=== PATIENT | male | born 1965 | race Caucasian/White ===

== ENCOUNTER 2017-03-12 11:19 | Emergency (ER) | payer BC, OTHER ==
[2017-03-12 11:32] VITALS: BP 132/97; PULSE 67; TEMP 98.3; BMI 38.0
--- NOTE | 2017-03-12 12:54 | PDOC ---
History of Present Illness - General Chief Complaint: Bleeding from Anus Stated Complaint: RECTAL BLEED Time Seen by Provider: 03/12/17 12:00 - History of Present Illness Initial Comments: 03/12/17 12:44 52M w/ significant alcohol hx, recent used of NSAIDs, PUD, hemmorrhoids, and colonoscopy 2 years ago showing polyps, presenting w/ 5 days of BRBPR. Pt reports seeing blood in his stool and leaking from anus s/p BM 5 days ago which increased two days ago. He reports alternating constipation and diarrhea, colicky lower abdominal pain worst before BMs and improved after BMs. He took dulcolex last night which decreased hematochezia this am. He denies melena, nausea, emesis, fevers, chills, weight loss, and anal itching or pain, and he has a normal appetite. He reports 2 weeks of neck pain, so has taken about 4 pills of either aleve or advil each day since. He has 2 drinks of alcohol a day for past 25 years. He had a colonoscopy 2 years ago which showed polyps, and he was told to return for another colonoscopy later this month. He has a hx of hemmorrhoids successfully treated with preparation H. He has a remote hx 20 years ago of PUD, treated with nexium. 03/12/17 13:01 Past History - Past Medical History Allergies/Adverse Reactions: Allergies Allergy/AdvReac Type Severity Reaction Status Date / Time No Known Allergies Allergy Verified 03/12/17 11:29 Home Medications: Ambulatory Orders Valsartan/Hydrochlorothiazide [Valsartan-Hctz 160-25 mg Tab] 1 each PO DAILY 05/19 HTN: Yes Comment:: 03/12/17 12:54 PMH: fatty liver disease, dx 4 years ago, but most recent labs showed normal values HTN hemmorroids PUD PSH: 2 right meniscal repairs Meds: valsartan, nexium, advil/aleve Allergies: NKDA Fam Hx: HTN in father, DM in mother Social Hx: denies smoking and drugs. Has 2 drinks of alcohol for past 25 years - Immunization History Immunization Up to Date: Yes - Psycho/Social/Smoking Cessation Hx Suicidal Ideation: No Smoking History: Never smoked Hx Alcohol Use: Yes Drug/Substance Use Hx: No Review of Systems - Review of Systems Comments:: 03/12/17 12:56 GENERAL: No fever, chills, night sweats, or weakness. HEAD, EYES, EARS, NOSE AND THROAT: No change in vision, ear pain, or sore throat CARDIOVASCULAR: No chest pain or palpitations RESPIRATORY: No cough, wheezing, or hemoptysis, occasional SOB GASTROINTESTINAL: No nausea, vomiting, + diarrhea, + constipation, + blood in the stool. GENITOURINARY: No dysuria, frequency, or urgency MUSCULOSKELETAL: No joint or muscle swelling or pain. SKIN: No rashes or pruritis ENDOCRINE: No increased thirst. No abnormal weight change NEUROLOGIC: No headache, dizziness, loss of consciousness, or change in strength /sensation. *Physical Exam - Vital Signs Last Vital Signs Temp Pulse Resp BP Pulse Ox 98.3 F 67 18 132/97 97 03/12/17 11:29 03/12/17 11:29 03/12/17 11:29 03/12/17 11:29 03/12/17 11:29 - Physical Exam Comments: 03/12/17 12:57 GENERAL: Awake, alert, and fully oriented, in no acute distress HEAD: normocephalic, atraumatic HEENT: PERRLA, EOMI NECK: Normal ROM, supple, no lymphadenopathy, JVD, or masses HEART: Regular rate and rhythm, normal S1 and S2, no murmurs, rubs or gallops, peripheral pulses normal and equal bilaterally. LUNGS: CTAB, no wheezing, no rales ABDOMEN: Soft, nontender, nondistended, normoactive bowel sounds. No guarding, no rebound. No masses EXTREMITIES: Normal range of motion, no edema. SKIN: Warm, dry, no rashes or lesions noted. NEUROLOGICAL: Cranial nerves II through XII grossly intact. Normal speech, normal gait, no focal sensorimotor deficits Rectal Exam: no hemorrhoids, no masses, no obvious rectal bleeding ED Treatment Course - LABORATORY CBC & Chemistry Diagram: 03/12/17 12:50 03/12/17 12:50 Medical Decision Making - Medical Decision Making 03/12/17 13:00 03/12/17 13:01 52M w/ significant alcohol hx, recent used of NSAIDs, PUD, hemmorrhoids, and colonoscopy 2 years ago showing polyps, presenting w/ 5 days of BRBPR. Etiology PUD vs. gastritis vs. diverticulosis vs. hemorrhoids. -CBC: wnl -PT/PTT/INR: wnl -CMP: elevated aminotransferases -type and screen -stool occult: negative -CT abdomen/pelvis: fatty liver 03/12/17 17:44 *DC/Admit/Observation/Transfer Diagnosis at time of Disposition: Hemorrhoid Qualifiers: Hemorrhoid type: unspecified Qualified Code(s): K64.9 - Unspecified hemorrhoids - Discharge Dispostion Disposition: HOME Condition at time of disposition: Stable Admit: No - Patient Instructions Printed Discharge Instructions: DI for Hemorrhoids Additional Instructions: The source of your bleeding was not definitively determined. It is likely due to hemorrhoids given your history of it as well as bleeding after BMs with significant constipation. Your hemoglobin levels are normal, and the CT scan showed fatty liver changes. Stop drinking alcohol and taking advil/aleve as they can worsen the bleeding. See your GI doctor and get the colonoscopy to definitively determine cause of bleeding. Return to ED if your bleeding worsens or you experience shortness of breath or chest pain or any other concerning symptoms. - Attestations Physician Attestion: 03/12/17 17:53 I, Dr. Cortez Haywood, attest that this document has been prepared under my direction and personally reviewed by me in its entirety. I further attest, that it accurately reflects all work, treatment, procedures and medical decision -making performed by me.
[2017-03-12 12:57] LABS: BASOPHIL 0.9 % (0-2.0); MCH 29.3 pg (25.7-33.7); MCHC 34.3 g/dl (32.0-35.9); MEAN CELL VOLUME 85.5 fl (80-96); MEAN PLT VOLUME 7.9 fl (7.5-11.1); NEUTROPHILS 52.3 % (42.8-82.8); PLATELET COUNT 229 K/MM3 (134-434); RDW 13.4 % (11.9-15.9); WHITE BLOOD COUNT 6.7 K/mm3 (4.0-10.0)
[2017-03-12 13:10] LABS: INR 1.12 (0.82-1.09); PROTHROMBIN TIME (PATIENT) 12.4 SEC (9.98-11.88)
[2017-03-12 13:13] LABS: ACTIVATED PTT 35.8 SECONDS (26.9-34.4)
[2017-03-12 13:21] LABS: ALBUMIN 4.6 g/dl (3.4-5.0); ALK PHOS 46 U/L (45-117); ANION GAP 5 (8-16); BILIRUBIN,TOTAL 0.5 mg/dL (0.2-1.0); CALCIUM 9.4 mg/dL (8.5-10.1); CO2 33 mmol/L (21-32); CREATININE 0.8 mg/dL (0.7-1.3); GLUCOSE,RANDOM 90 mg/dL (74-106); SGOT/AST 60 U/L (15-37); SGPT/ALT 112 U/L (12-78); TOT PROT 8.1 g/dl (6.4-8.2)
--- NOTE | 2017-03-12 15:47 | PDOC ---
Attending Attestation - Resident Resident Name: Cortez Haywood - ED Attending Attestation I have performed the following: I have examined & evaluated the patient, The case was reviewed & discussed with the resident, I agree w/resident's findings & plan, Exceptions are as noted - HPI HPI: 03/12/17 15:46 Abdominal Pain and Rectal Bleeding - Physicial Exam PE: 03/12/17 15:47 Hemodynamically stable and abdomen benign - Medical Decision Making 03/12/17 15:[address] Haywood's assessment and plan
== END 2017-03-12 18:34 | disposition home or self-care (01) ==
LOC: JER 11:19
DX: K64.9 Unspecified hemorrhoids (principal); K76.0 Fatty (change of) liver, not elsewhere classified; I10 Essential (primary) hypertension
CPT/HCPCS: 36415; 74177-TC; 80053; 82272; 85025; 85610; 85730; 86850; 86900; 86901; 99283-25

== ENCOUNTER 2018-09-05 17:14 | Observation (INO) | payer BC, OTHER ==
--- NOTE | 2018-09-05 18:38 | PDOC ---
History of Present Illness <PreciousMckenna - Last Filed: 09/05/18 19:35> - General History Source: Patient Exam Limitations: No Limitations - History of Present Illness Initial Comments: 09/05/18 20:49 Pt is a 53yo M with PMH of HTN presenting to ED with complaints of intermittent chest pain x1week. Pt states that the pain feels like a pressure in the middle of the chest, occasionally radiates to the back and L side of the chest, happens during rest and exertion. He denies SOB, cough, fevers, chills, abdominal pain, n/v/d, changes in vision, headache, urinary symptoms. He endorses some lightheadedness. He has been taking full dose ASA and took one today. His father had an SD in his 80s. PMD: Snow PMH: see hpi PSH: knee surgery Meds: Valsartan? Allergies: nkda Social: drinks 3 glasses of wine daily. Denies tobacco, cocaine, illicit drug use. <Jodie Elliott - Last Filed: 09/06/18 00:18> - General Chief Complaint: Chest Pain Stated Complaint: STRESS CHEST PAIN Time Seen by Provider: 09/05/18 18:35 Past History <Mckenna Lang - Last Filed: 09/05/18 19:35> - Past Medical History COPD: No HTN: Yes - Immunization History Immunization Up to Date: Yes - Suicide/Smoking/Psychosocial Hx Smoking History: Never smoked Hx Alcohol Use: Yes Drug/Substance Use Hx: No <Jodie Elliott - Last Filed: 09/06/18 00:18> - Past Medical History Allergies/Adverse Reactions: Allergies Allergy/AdvReac Type Severity Reaction Status Date / Time No Known Allergies Allergy Verified 09/05/18 17:18 Home Medications: Ambulatory Orders Losartan/Hydrochlorothiazide [Losartan-Hctz 100-25 mg Tab] 1 each PO DAILY 09/05 Review of Systems - Review of Systems Constitutional: No: Chills, Fever, Loss of Appetite, Weakness HEENTM: No: Symptoms Reported Respiratory: No: Cough, Shortness of Breath, Wheezing Cardiac (ROS): Yes: See HPI, Chest Pain, Chest Tightness. No: Edema, Lightheadedness, Palpitations, Syncope ABD/GI: No: Symptoms Reported : No: Symptoms Reported Musculoskeletal: Yes: See HPI, Back Pain, Neck Pain Integumentary: No: Symptoms Reported Neurological: No: Headache, Numbness, Seizure, Tingling, Ataxia <Jodie Elliott - Last Filed: 09/06/18 00:18> *Physical Exam - Vital Signs Last Vital Signs Temp Pulse Resp BP Pulse Ox 97.3 F L 78 17 158/78 100 09/05/18 17:15 09/05/18 18:54 09/05/18 18:54 09/05/18 18:54 09/05/18 18:54 <Mckenna Lang - Last Filed: 09/05/18 19:35> - Vital Signs Last Vital Signs Temp Pulse Resp BP Pulse Ox 97.3 F L 89 18 201/107 H 99 09/05/18 17:15 09/05/18 17:15 09/05/18 17:15 09/05/18 17:15 09/05/18 17:15 - Physical Exam General Appearance: Yes: Nourished, Appropriately Dressed. No: Apparent Distress HEENT: positive: EOMI, CJ, Pharynx Normal Neck: positive: Trachea midline, Supple. negative: Carotid bruit, Lymphadenopathy (R), Lymphadenopathy (L) Respiratory/Chest: positive: Lungs Clear, Normal Breath Sounds. negative: Chest Tender, Crackles, Rales, Rhonchi, Stridor, Wheezing Cardiovascular: positive: Regular Rhythm, Regular Rate, S1, S2. negative: Edema , JVD, Murmur Vascular Pulses: Carotid (R): 2+, Carotid (L): 2+, Dorsalis-Pedis (R): 2+, Doralis-Pedis (L): 2+ Gastrointestinal/Abdominal: positive: Normal Bowel Sounds, Soft. negative: Protuberent, Distended, Guarding, Rebound Musculoskeletal: negative: CVA Tenderness Extremity: positive: Normal Capillary Refill. negative: Pedal Edema, Swelling Integumentary: positive: Normal Color, Dry, Warm Neurologic: positive: trade analyst II-XII NML intact, Fully Oriented, Alert, Normal Mood/ Affect, Normal Response, Motor Strength 5/5 <Jodie Elliott - Last Filed: 09/06/18 00:18> Moderate Sedation - Procedure Monitoring Vital Signs: Procedure Monitoring Vital Signs Temperature 97.3 F L 09/05/18 17:15 Pulse Rate 78 09/05/18 18:54 Respiratory Rate 17 09/05/18 18:54 Blood Pressure 158/78 09/05/18 18:54 O2 Sat by Pulse Oximetry (%) 100 09/05/18 18:54 <Mckenna Lang - Last Filed: 09/05/18 19:35> - Procedure Monitoring Vital Signs: Procedure Monitoring Vital Signs Temperature 97.3 F L 09/05/18 17:15 Pulse Rate 89 09/05/18 17:15 Respiratory Rate 18 09/05/18 17:15 Blood Pressure 201/107 H 09/05/18 17:15 O2 Sat by Pulse Oximetry (%) 99 09/05/18 17:15 <Jodie Elliott - Last Filed: 09/06/18 00:18> Heart Score/ECG Review - History History: Slightly suspicious - Electrocardiogram EKG: Non specific repolarization disturbance - Age Age: 45-65 - Risk Factors Risk Factors Heart Score: Yes Hx Hypertension, Yes Positive family hx of cardiac disease Based on the list above the patient has:: 1-2 risk factors - Troponin Troponin: </= normal limit - Score Heart Score - Total: 3 <Jodie Elliott - Last Filed: 09/06/18 00:18> ED Treatment Course - LABORATORY CBC & Chemistry Diagram: 09/05/18 18:49 09/05/18 18:49 - ADDITIONAL ORDERS Additional order review: Laboratory Results 09/05/18 18:49 PT with INR 12.70 INR 1.08 09/05/18 18:49 RBC 5.27 MCV 86.9 MCHC 35.0 RDW 13.3 MPV 8.5 Neutrophils % 71.0 D Lymphocytes % 19.0 D Monocytes % 8.9 Eosinophils % 0.4 Basophils % 0.7 - Medications Given in the ED: ED Medications Discontinued Medications Generic Name Dose Route Start Last Admin Trade Name Freq PRN Reason Stop Dose Admin Aspirin 162 mg 09/05/18 18:38 09/05/18 19:00 Asa - PO 09/05/18 18:39 Not Given ONCE ONE <Mckenna Lang - Last Filed: 09/05/18 19:35> - LABORATORY CBC & Chemistry Diagram: 09/05/18 18:49 09/05/18 19:53 <Jodie Elliott - Last Filed: 09/06/18 00:18> Medical Decision Making - Medical Decision Making 09/05/18 20:52 Pt is a 53yo M with PMH of HTN presenting to ED with complaints of intermittent chest pain x1week. Pt states that the pain feels like a pressure in the middle of the chest, occasionally radiates to the back and L side of the chest, happens during rest and exertion. He denies SOB, cough, fevers, chills, abdominal pain, n/v/d, changes in vision, headache, urinary symptoms. He endorses some lightheadedness. He has been taking full dose ASA and took one today. His father had an SD in his 80s. Vitals: hypertensive on arrival (200s/100s) repeat bp 150s systolic. normocardic, saturating well on RA. PE: benign Ddx includes but not limited to acs, pe, dissection, pna, metabolic derangement , infectious process, malignancy -cardiac workup ordered (hemolyzed by lab, repeat ordered entered) -cxr, ekg -does not need asa at this time -added on bnp, aptt, ct head, metoprolol 5mg and nitrostat, tylenol 09/06/18 00:15 cbc wnl, CK and CKMB elevated normal trop NSR. no gustavo or depressions. Coags normal CTA ordered. CXR does not show anything acute. PT admitted <Jodie Elliott - Last Filed: 09/06/18 00:18> *DC/Admit/Observation/Transfer <Mckenna Lang - Last Filed: 09/05/18 19:35> - Discharge Dispostion Decision to Admit order: Yes <Jodie Elliott - Last Filed: 09/06/18 00:18> Diagnosis at time of Disposition: Chest pain Qualifiers: Chest pain type: unspecified Qualified Code(s): R07.9 - Chest pain, unspecified - Discharge Dispostion Condition at time of disposition: Good
[2018-09-05] MEDS ORDERED: ASPIRIN 81 MG CHEWABLE TABLETS ONE (18:49)
[2018-09-05] MEDS: ASPIRIN 81 MG CHEWABLE TABLETS PO ONE ×2 (18:57→19:00)
[2018-09-05 19:02] LABS: BASO % 0.7 % (0-2.0); EOS % 0.4 % (0-4.5); HEMATOCRIT 45.8 % (35.4-49); MCH 30.4 pg (25.7-33.7); MEAN CELL VOLUME 86.9 fl (80-96); MEAN PLT VOLUME 8.5 fl (7.5-11.1); MONO % 8.9 % (3.8-10.2); PLATELET COUNT 257 K/MM3 (134-434); RBC 5.27 M/mm3 (4.00-5.60); RDW 13.3 % (11.9-15.9); WHITE BLOOD COUNT 7.6 K/mm3 (4.0-10.0)
[2018-09-05 19:28] LABS: INR 1.08 (0.83-1.09); PROTHROMBIN TIME (PATIENT) 12.7 SEC (9.7-13.0)
[2018-09-05] MEDS ORDERED: NITROGLYCERIN SUBLINGUAL 1/150 0.4 MG TAB SL ONE ×2 (19:45→19:51)
--- NOTE | 2018-09-05 19:45 | PDOC ---
Attending Attestation - HPI HPI: This patient is a 53 year old male with PMHx of EtOH use, fatty liver disease, HTN, hemorrhoids, peptic ulcer disease, who presents with 1 week of chest pain. He states that worsened since yesterday and he comes in to determine the cause of his chest pain. He states the chest pain begins at both rest and work. He states it is pressure-like, comes and goes, and radiates to his mid back. He also complains of headache and tingling to posterior head. PSH: 2 right meniscal repairs Allergies: NKDA Fam Hx: HTN in father, DM in mother Social Hx: denies smoking and drugs. Has 2 drinks of alcohol for past 25 years 09/05/18 20:49 - Physicial Exam PE: Vitals: reviewed in triage. Blood pressure 178 systolic on right and 165 systolic on left. GENERAL: Awake, alert, and fully oriented, in no acute distress HEAD: No signs of trauma EYES: PERRLA, EOMI, sclera anicteric, conjunctiva clear NECK: Normal ROM, supple, no lymphadenopathy, JVD, or masses LUNGS: Breath sounds equal, clear to auscultation bilaterally. No wheezes, and no crackles HEART: Regular rate and rhythm, normal S1 and S2, no murmurs, rubs or gallops. ABDOMEN: Soft, nontender, normoactive bowel sounds. No guarding, no rebound. No masses EXTREMITIES: Normal range of motion, no edema. No clubbing or cyanosis. No cords, erythema, or tenderness NEUROLOGICAL: Cranial nerves II through XII grossly intact. Normal speech, normal gait SKIN: Warm, Dry, normal turgor, no rashes or lesions noted. <Mckenna Lang - Last Filed: 09/05/18 20:51> - Resident Resident Name: Jodie Elliott - ED Attending Attestation I have performed the following: I have examined & evaluated the patient, The case was reviewed & discussed with the resident, I agree w/resident's findings & plan - HPI HPI: 09/05/18 19:44 Chest pain x 1 week; worse today and yesterday; headache and tingling of back of head. - Medical Decision Making 09/05/18 19:45 Cardiac enzymes EKG; CXR; admit tele 09/05/18 20:13 Cardiomegaly 09/05/18 20:13 BP was 170 and 158 bilat arms; I gave 1 SLNTG 0.4mg. Then BP was 172 systolic; I repeated another 0.5 SLNTG 0.4mg BP now 142 systolic. Pt will be given metoprolol 5 mg IVP. To be followed by metoprolol 25 mg PO. 09/06/18 01:37 Referring Physician: PEREZ MONTEIRO Patient Name: MANNY TROTTER THIS IS A PRELIMINARY REPORT FROM [facility] DATE OF SERVICE: 2018-09-06 00:31:05 IMAGES: [id number] EXAM: CTA chest and abdomen with contrast HISTORY: Concern for dissection COMPARISON: None. FINDINGS: Heart:: Normal Pericardium: not thickened Thoracic aorta and great vessels: Normal Superior vena cava and inferior vena cava: Normal CONFIDENTIALITY NOTICE: This information is intended only for the use of the recipient(s) named above. If you are not the intended recipient, or a person responsible for delivering it to the intended recipient, you are hereby notified that any disclosure, copying, distribution or use of any of the information contained in or attached to this transmission is STRICTLY PROHIBITED. If you have received this transmission in error, please immediately notify [facility] and destroy the original transmission and its attachments without saving them in any manner [address] [facility] [address] [place] [address] Phone: [phone] ([phone]) Fax: Email: [email or web address]: [email or web address] Patient Information: : 1965 Order Type: Preliminary Name: ROSE MARIE BRYANT Sex: M Study Description: CT CHEST ABDOMEN Modality: CT Location: [facility] Referring Physician: PEREZ MONTEIRO Pulmonary arteries: Normal Thoracic esophagus: Normal Mediastinal lymph nodes: Normal Central airways: Normal Lungs: clear without focal consolidation Pleural spaces: Normal with no pneumothorax or pleural fluid Chest wall: Normal Abdomen Liver: Normal Spleen: Normal Pancreas: Normal Gallbladder: Normal Stomach: Normal Small bowel: The visualized portions are normal Large bowel: The visualized portions are normal Appendix: The visualized portions are normal Adrenals:Normal Kidneys: Normal Vascular: Normal Lymphatic: Normal Peritoneal: No free peritoneal air or fluid Skeletal: Normal Abdominal wall: Normal IMPRESSION: Normal aorta No pulmonary embolism. No acute findings 09/06/18 01:41 Patient Name: MANNY TROTTER THIS IS A PRELIMINARY REPORT FROM [facility] EXAM: CT Head wo IMAGES: [id number] EXAM DATE AND TIME: 2018-09-05 20:58:22 HISTORY: 53 year old man: Headache. Hypertension. Hand weakness. COMPARISON: None TECHNIQUE: Non-contrast axial images were obtained. Coronal and sagittal images were also generated. FINDINGS: The cerebral sulci and ventricles are normal in size. There are no intracranial hemorrhages, extra-axial fluid collections or evidence of an intra-axial mass lesion. There is no evidence of an acute or chronic ischemic lesion at this time. Orbital and petrous structures, cerebellopontine angles, and posterior fossa appear unremarkable. The paranasal and mastoid sinuses are clear. IMPRESSION: Normal CT scan of the head. No intracranial hemorrhages, extra- axial fluid collections or intra-axial mass lesion. <Jihan Dial - Last Filed: 09/06/18 01:41> Heart Score/ECG Review - ECG Intrepretation Rhythm: Regular Rhythm - [place]: Normal - P and OR Prominent R with upright T in V1 (true posterior VA): No Delta Wave(s) Present: No WPW: No - QRS Poor R Wave Progression: No Q Wave Present: No - ST and T Early Repolarization: No Non Specific ST-T Wave changes: No Flattened T Waves: Yes Prolonged Q-T Interval: No - ECG Impressions Normal ECG: Yes Non-specific ST Elevation: No Ischemic Changes: Yes (inferior flattening) Bradycardia: No <Jihan Dial - Last Filed: 09/06/18 01:41> Attestations - Attestations 09/05/18 20:52 Documentation prepared by Mckenna Lang, acting as medical director of hospice for Jihan Dial MD. <Mckenna Lang - Last Filed: 09/05/18 20:51>
[2018-09-05] MEDS ORDERED: METOPROLOL TARTRATE 5 MG/5 ML VIAL IVPUSH ONE (19:50)
[2018-09-05] MEDS ORDERED: ACETAMINOPHEN INJECTION 100 ML IVPB ONE (19:56)
[2018-09-05] MEDS ORDERED: METOPROLOL TARTRATE 5 MG/5 ML VIAL ONE (19:57)
[2018-09-05] MEDS ORDERED: ACETAMINOPHEN 1000 MG/100 ML VIAL (NON FORMULARY) IVPB ONE (20:03)
[2018-09-05] MEDS ORDERED: METOPROLOL TARTRATE 50 MG TABLET (FP) PO ONE (20:15)
[2018-09-05 20:38] LABS: ALBUMIN 4.2 g/dl (3.4-5.0); ALK PHOS 54 U/L (45-117); ANION GAP 8 MMOL/L (8-16); BILIRUBIN,TOTAL 0.4 mg/dL (0.2-1); BLOOD UREA NITROGEN 14 mg/dL (7-18); CALCIUM 8.8 mg/dL (8.5-10.1); CHLORIDE 101 mmol/L (98-107); CO2 29 mmol/L (21-32); CREATININE 0.8 mg/dL (0.55-1.3); GLUCOSE,RANDOM 107 mg/dL (74-106); MAGNESIUM 2.4 mg/dL (1.8-2.4); POTASSIUM 3.3 mmol/L (3.5-5.1); SGOT/AST 36 U/L (15-37); SGPT/ALT 54 U/L (13-61); SODIUM 138 mmol/L (136-145); TOT PROT 7.4 g/dl (6.4-8.2)
[2018-09-05] MEDS ORDERED: MAGNESIUM SULF 50% (8.12 MEQ/2 ML-1 GM VIAL) IVPB ONE (20:47)
[2018-09-05] MEDS ORDERED: POTASSIUM CHLORIDE TABS 20 MEQ TABLET.ER (FP) PO ONE ×2 (20:47→21:10)
[2018-09-05] MEDS ORDERED: METOPROLOL TARTRATE 25 MG TABLET (FP) ONE (21:10)
[2018-09-05] MEDS ORDERED: MAGNESIUM 1GM/D5W - 2 GM/200 ML IVPB IVPB ONE (21:11)
[2018-09-05 21:58] LABS: N-TERMINAL BNP 35.6 pg/ml (5-125)
--- NOTE | 2018-09-05 22:57 | HP ---
CHIEF COMPLAINT: Chest Pain PCP: Dr. Adamson HISTORY OF PRESENT ILLNESS: This is a 53 y/o man with a PMHx of HTN, PUD. Who presents to the ED with chest pain x 1 week. Patient reports having non-radiating CP with head and neck pressure. Patient also reports having tingling sensation to the left side of his face x several days. Patient denies blurred vision, slurred speech, facial droop, weakness. Patient denies fever, chills, cough, SOB, palpitations, AP, N/V /D, dysuria. ER course was notable for: (1) Head CT- No ICH, mass or lesion (2) CTA- No PE, No aortic dissection (3) CTAP- no acute pathology (4) Troponin I- < 0.02 Recent Travel: None PAST MEDICAL HISTORY: See HPI PAST SURGICAL HISTORY: None Social History: Smoking: Never Alcohol: Wine 2-3 times several days Drugs: Denies Lives with , employed [employer] L[employer] Family History: Father- HTN, DC Mother- DM, Stroke,Cardiac- Open Heart, Allergies No Known Allergies Allergy (Verified 09/05/18 17:18) HOME MEDICATIONS: Home Medications Medication Instructions Recorded Losartan/Hydrochlorothiazide 1 each PO DAILY 09/05/18 [Losartan-Hctz 100-25 mg Tab] REVIEW OF SYSTEMS CONSTITUTIONAL: Absent: fever, chills, diaphoresis, generalized weakness, malaise, loss of appetite, weight change HEENT: Absent: rhinorrhea, nasal congestion, throat pain, throat swelling, difficulty swallowing, mouth swelling, ear pain, eye pain, visual changes CARDIOVASCULAR: chest pain Absent: syncope, palpitations, irregular heart rate, lightheadedness, peripheral edema RESPIRATORY: Absent: cough, shortness of breath, dyspnea with exertion, orthopnea, wheezing, stridor, hemoptysis GASTROINTESTINAL: Absent: abdominal pain, abdominal distension, nausea, vomiting, diarrhea, constipation, melena, hematochezia GENITOURINARY: Absent: dysuria, frequency, urgency, hesitancy, hematuria, flank pain, genital pain MUSCULOSKELETAL: neck pain Absent: myalgia, arthralgia, joint swelling, back pain SKIN: Absent: rash, itching, pallor HEMATOLOGIC/IMMUNOLOGIC: Absent: easy bleeding, easy bruising, lymphadenopathy, frequent infections ENDOCRINE: Absent: unexplained weight gain, unexplained weight loss, heat intolerance, cold intolerance NEUROLOGIC: headache, paresthesias Absent: focal weakness, dizziness, unsteady gait, seizure, mental status changes , bladder or bowel incontinence PSYCHIATRIC: Absent: anxiety, depression, suicidal or homicidal ideation, hallucinations. PHYSICAL EXAMINATION Vital Signs - 24 hr 09/05/18 09/05/18 09/05/18 17:15 18:54 19:55 Temperature 97.3 F L Pulse Rate 89 Pulse Rate [ 78 84 Apical] Respiratory 18 17 18 Rate Blood Pressure 201/107 H Blood Pressure 158/78 172/99 H [Right Arm] O2 Sat by Pulse 99 100 98 Oximetry (%) 09/05/18 09/05/18 20:03 20:09 Temperature Pulse Rate Pulse Rate [ 75 Apical] Respiratory 18 Rate Blood Pressure 144/75 Blood Pressure 144/75 [Right Arm] O2 Sat by Pulse 98 Oximetry (%) GENERAL: Awake, alert, and fully oriented, in no acute distress. HEAD: Normal with no signs of trauma. EYES: Pupils equal, round and reactive to light, extraocular movements intact, sclera anicteric, conjunctiva clear. No lid lag. EARS, NOSE, THROAT: Ears normal, nares patent, oropharynx clear without exudates. Moist mucous membranes. NECK: Normal range of motion, supple without lymphadenopathy, JVD, or masses. LUNGS: Breath sounds equal, clear to auscultation bilaterally. No wheezes, and no crackles. No accessory muscle use. HEART: Regular rate and rhythm, normal S1 and S2 without murmur, rub or gallop. CP non-reproducible ABDOMEN: Soft, nontender, not distended, normoactive bowel sounds, no guarding, no rebound, no masses. No hepatomegaly or splenomegaly. MUSCULOSKELETAL: Normal range of motion at all joints. No bony deformities or tenderness. No CVA tenderness. UPPER EXTREMITIES: 2+ pulses, warm, well-perfused. No cyanosis. No clubbing. No peripheral edema. LOWER EXTREMITIES: 2+ pulses, warm, well-perfused. No calf tenderness. No peripheral edema. NEUROLOGICAL: Cranial nerves II-XII intact. Normal speech. Gait not observed. PSYCHIATRIC: Cooperative. Good eye contact. Appropriate mood and affect. SKIN: Warm, dry, normal turgor, no rashes or lesions noted, normal capillary refill. Laboratory Results - last 24 hr 09/05/18 09/05/18 09/05/18 18:49 18:49 18:49 WBC 7.6 RBC 5.27 Hgb 16.0 Hct 45.8 MCV 86.9 MCH 30.4 MCHC 35.0 RDW 13.3 Plt Count 257 MPV 8.5 Absolute Neuts (auto) 5.4 Neutrophils % 71.0 D Lymphocytes % 19.0 D Monocytes % 8.9 Eosinophils % 0.4 Basophils % 0.7 Nucleated RBC % 0 PT with INR 12.70 INR 1.08 PTT (Actin FS) Sodium Cancelled Potassium Cancelled Chloride Cancelled Carbon Dioxide Cancelled Anion Gap Cancelled BUN Cancelled Creatinine Cancelled Creat Clearance w eGFR Cancelled Random Glucose Cancelled Calcium Cancelled Magnesium Cancelled Total Bilirubin Cancelled AST Cancelled ALT Cancelled Alkaline Phosphatase Cancelled Creatine Kinase Creatine Kinase Index CK-MB (CK-2) Troponin I Cancelled B-Natriuretic Peptide Total Protein Cancelled Albumin Cancelled 09/05/18 09/05/18 09/05/18 19:49 19:53 20:19 WBC RBC Hgb Hct MCV MCH MCHC RDW Plt Count MPV Absolute Neuts (auto) Neutrophils % Lymphocytes % Monocytes % Eosinophils % Basophils % Nucleated RBC % PT with INR INR PTT (Actin FS) 33.3 Sodium 138 Potassium 3.3 L Chloride 101 Carbon Dioxide 29 Anion Gap 8 BUN 14 Creatinine 0.8 Creat Clearance w eGFR > 60 Random Glucose 107 H Calcium 8.8 Magnesium 2.4 Total Bilirubin 0.4 AST 36 ALT 54 Alkaline Phosphatase 54 Creatine Kinase Cancelled Creatine Kinase Index CK-MB (CK-2) Troponin I Cancelled B-Natriuretic Peptide Cancelled Total Protein 7.4 Albumin 4.2 09/05/18 20:36 WBC RBC Hgb Hct MCV MCH MCHC RDW Plt Count MPV Absolute Neuts (auto) Neutrophils % Lymphocytes % Monocytes % Eosinophils % Basophils % Nucleated RBC % PT with INR INR PTT (Actin FS) Sodium Potassium Chloride Carbon Dioxide Anion Gap BUN Creatinine Creat Clearance w eGFR Random Glucose Calcium Magnesium Total Bilirubin AST ALT Alkaline Phosphatase Creatine Kinase 475 H Creatine Kinase Index 1.2 CK-MB (CK-2) 5.7 H Troponin I < 0.02 B-Natriuretic Peptide 35.6 Total Protein Albumin ASSESSMENT/PLAN: This is a 53 y/o man with a PMHx of HTN, PUD placed in Observation for Chest Pain r/o ACS for further evaluation of their emergent condition. Problem List - Problem (1) Chest pain Code(s): R07.9 - CHEST PAIN, UNSPECIFIED Qualifiers: Chest pain type: unspecified Qualified Code(s): R07.9 - Chest pain, unspecified (2) HTN (hypertension) Code(s): I10 - ESSENTIAL (PRIMARY) HYPERTENSION Visit type - Emergency Visit Emergency Visit: Yes ED Registration Date: 09/05/18 Care time: The patient presented to the Emergency Department on the above date and was hospitalized for further evaluation of their emergent condition. - New Patient This patient is new to me today: Yes Date on this admission: 09/05/18 - Critical Care Critical Care patient: No
[2018-09-06 00:40] LABS: INR 1.08 (0.83-1.09); PROTHROMBIN TIME (PATIENT) 12.8 SEC (9.7-13.0)
[2018-09-06 01:42] LABS: URINE APPEARANCE CLEAR; URINE BILIRUBIN NEGATIVE (<2.0 mg/dL); URINE COLOR LTYELLOW; URINE GLUCOSE (UA) NEGATIVE (NEGATIVE); URINE KETONE NEGATIVE (NEGATIVE); URINE LEUK ESTERASE NEGATIVE (NEGATIVE); URINE NITRITE NEGATIVE (NEGATIVE); URINE PROTEIN NEGATIVE (NEGATIVE); URINE UROBILINOGEN NEGATIVE mg/dL (0.2-1.0)
[2018-09-06 02:04] LABS: ALBUMIN 4.1 g/dl (3.4-5.0); ALK PHOS 51 U/L (45-117); ANION GAP 6 MMOL/L (8-16); BILIRUBIN,TOTAL 0.4 mg/dL (0.2-1); BLOOD UREA NITROGEN 13 mg/dL (7-18); CALCIUM 8.4 mg/dL (8.5-10.1); CHLORIDE 102 mmol/L (98-107); CO2 30 mmol/L (21-32); CREATININE 0.8 mg/dL (0.55-1.3); GLUCOSE,RANDOM 102 mg/dL (74-106); MAGNESIUM 2.5 mg/dL (1.8-2.4); POTASSIUM 3.6 mmol/L (3.5-5.1); SGOT/AST 30 U/L (15-37); SGPT/ALT 50 U/L (13-61); SODIUM 138 mmol/L (136-145); TOT PROT 7.2 g/dl (6.4-8.2)
[2018-09-06 02:54] VITALS: BMI 36.1
[2018-09-06 06:42] LABS: BASO % 0.8 % (0-2.0); EOS % 1.4 % (0-4.5); HEMATOCRIT 43.2 % (35.4-49); LYMPH % 36.4 % (8-40); MCH 29.9 pg (25.7-33.7); MCHC 34.8 g/dl (32.0-35.9); MEAN CELL VOLUME 85.8 fl (80-96); MEAN PLT VOLUME 8.6 fl (7.5-11.1); MONO % 10.2 % (3.8-10.2); NEUT % 51.2 % (42.8-82.8); PLATELET COUNT 222 K/MM3 (134-434); RBC 5.03 M/mm3 (4.00-5.60); RDW 13.4 % (11.9-15.9)
[2018-09-06 07:20] LABS: ANION GAP 5 MMOL/L (8-16); BLOOD UREA NITROGEN 12 mg/dL (7-18); CALCIUM 8.7 mg/dL (8.5-10.1); CHLORIDE 102 mmol/L (98-107); CHOLESTEROL 144 mg/dL (50-200); CO2 33 mmol/L (21-32); CREATININE 0.9 mg/dL (0.55-1.3); GLUCOSE,RANDOM 99 mg/dL (74-106); HDL CHOLESTEROL 46 mg/dL (40-60); PHOSPHOROUS 3.2 mg/dL (2.5-4.9); POTASSIUM 3.9 mmol/L (3.5-5.1); SODIUM 140 mmol/L (136-145); TRIGLYCERIDES 90 mg/dL (0-150)
[2018-09-06] MEDS ORDERED: PT OWN MED DRAWER 7, Y5N ONE (09:12)
[2018-09-06] MEDS: LOSARTAN 50MG/HCTZ 12.5MG 1 TAB (FP) PO SCH (09:38)
--- NOTE | 2018-09-06 09:52 | EKG ---
Test Reason : Blood Pressure : / mmHG Vent. Rate : 085 BPM Atrial Rate : 085 BPM P-R Int : 172 ms QRS Dur : 102 ms QT Int : 382 ms P-R-T Axes : 106 030 019 degrees QTc Int : 454 ms NORMAL SINUS RHYTHM INCOMPLETE RIGHT BUNDLE BRANCH BLOCK NO PREVIOUS ECGS AVAILABLE Confirmed by JOVAN MANCILLA MD ([id number]) on 09/06/2018 9:52:18 AM Referred By: Confirmed By:JOVAN MANCILLA MD
[2018-09-06] MEDS ORDERED: PATIENT'S OWN MEDICATION (NON-FORMULARY) (Losartan/Hydrochlorothiazide [Losartan-Hctz 100- PO SCH (10:00)
[2018-09-06] MEDS ORDERED: NITROGLYCERIN SUBLINGUAL 1/150 0.4 MG TAB SL PRN (11:14)
--- NOTE | 2018-09-06 11:17 | PN ---
Progress Note, Physician Chief Complaint: Chest pain HTN History of Present Illness: Previous notes and events reviewed awake and alert NAD sts feeling better and chest pain is not as bad as yesterday Head CT neg - Current Medication List Current Medications: Active Medications Aspirin (Asa -) 81 mg PO DAILY [facility] HCTZ/Losartan Potassium (Hyzaar -) 2 tab PO DAILY [facility] Last Admin: 09/06/18 09:38 Dose: 2 tab - Objective Vital Signs: Vital Signs Temperature 97.9 F 09/06/18 09:00 Pulse Rate 72 09/06/18 09:00 Respiratory Rate 17 09/06/18 09:00 Blood Pressure 158/90 09/06/18 09:00 O2 Sat by Pulse Oximetry (%) 99 09/06/18 02:45 Constitutional: Yes: Well Nourished, No Distress, Calm Eyes: Yes: Conjunctiva Clear HENT: Yes: Normocephalic Neck: Yes: Supple Cardiovascular: Yes: Regular Rate and Rhythm Respiratory: Yes: Regular, CTA Bilaterally Gastrointestinal: Yes: Normal Bowel Sounds, Soft Musculoskeletal: Yes: WNL Extremities: Yes: WNL Edema: No Neurological: Yes: Alert, Oriented Psychiatric: Yes: Alert, Oriented Labs: CBC, BMP 09/06/18 05:30 09/06/18 05:30 INR, PTT INR 1.08 (0.83-1.09) 09/05/18 20:19 <Allegra Peraza - Last Filed: 09/06/18 11:17> - Current Medication List Current Medications: Active Medications Aspirin (Asa -) 81 mg PO DAILY [facility] Last Admin: 09/06/18 14:53 Dose: 81 mg HCTZ/Losartan Potassium (Hyzaar -) 2 tab PO DAILY [facility] Last Admin: 09/06/18 09:38 Dose: 2 tab Metoprolol Succinate (Toprol Xl -) 50 mg PO DAILY [facility] Last Admin: 09/06/18 16:04 Dose: 50 mg Nitroglycerin (Nitrostat -) 0.4 mg SL Q5M PRN PRN Reason: FOR CHEST PAIN - Objective Vital Signs: Vital Signs Temperature 98 F 09/06/18 14:00 Pulse Rate 75 09/06/18 14:00 Respiratory Rate 20 09/06/18 14:00 Blood Pressure 162/98 09/06/18 14:00 O2 Sat by Pulse Oximetry (%) 100 09/06/18 09:00 Labs: CBC, BMP 09/06/18 05:30 09/06/18 05:30 INR, PTT INR 1.08 (0.83-1.09) 09/05/18 20:19 <Alisia Adamson - Last Filed: 09/06/18 17:05> Problem List - Problems (1) Chest pain Assessment/Plan: -pending cardiology consult -scheduled for stress test and echo today -nitro SL PRN for chest pain -trop neg x 3 Code(s): R07.9 - CHEST PAIN, UNSPECIFIED Qualifiers: Chest pain type: unspecified Qualified Code(s): R07.9 - Chest pain, unspecified (2) HTN (hypertension) Assessment/Plan: -cont with Losartan/HCTZ -low Na diet Code(s): I10 - ESSENTIAL (PRIMARY) HYPERTENSION <Allegra Peraza - Last Filed: 09/06/18 11:17> Assessment/Plan dvt ppx see problem list <Allegra Peraza - Last Filed: 09/06/18 11:17> PATIENT SEEN AND EXAMINED AND I AGREE WITH THE ABOVE NOTE <Alisia Adamson - Last Filed: 09/06/18 17:05>
--- NOTE | 2018-09-06 14:28 | CON.CARD ---
Consult Consult Specialty:: cardiology Referred by:: Snow Reason for Consultation:: Chest pain - History of Present Illness Chief Complaint: Chest pain History of Present Illness: The patient is a 53-year-old obese man, we have a history of hypertension, alcohol abuse and fatty levered, peptic ulcer disease, now admitted with chest pains. 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 Symptoms lasted for hours. The patient reports no limitations on effort. He walks without chest pains, shortness of breath, palpitations. The patient ruled out for myocardial infarction. There is no CHF. 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 There are no acute ECG changes. - History Source History Provided By: Patient, Medical Record Limitations to Obtaining History: No Limitations - Past Medical History Cardio/Vascular: Yes: HTN Gastrointestinal: Yes: GERD, Peptic Ulcer Disease - Alcohol/Substance Use Hx Alcohol Use: Yes - Smoking History Smoking history: Never smoked Home Medications - Allergies Allergies/Adverse Reactions: Allergies Allergy/AdvReac Type Severity Reaction Status Date / Time No Known Allergies Allergy Verified 09/05/18 17:18 - Home Medications Home Medications: Ambulatory Orders Losartan/Hydrochlorothiazide [Losartan-Hctz 100-25 mg Tab] 1 each PO DAILY 09/05 Review of Systems - Review of Systems Constitutional: reports: No Symptoms Eyes: reports: No Symptoms HENT: reports: No Symptoms Neck: reports: No Symptoms Cardiovascular: reports: Chest Pain Respiratory: reports: No Symptoms Gastrointestinal: reports: No Symptoms Genitourinary: reports: No Symptoms Breasts: reports: No Symptoms Reported Musculoskeletal: reports: No Symptoms Integumentary: reports: No Symptoms Neurological: reports: No Symptoms Endocrine: reports: No Symptoms Hematology/Lymphatic: reports: No Symptoms Psychiatric: reports: No Symptoms Vital Signs: Vital Signs Temperature 97.9 F 09/06/18 09:00 Pulse Rate 72 09/06/18 09:00 Respiratory Rate 17 09/06/18 09:00 Blood Pressure 158/90 09/06/18 09:00 O2 Sat by Pulse Oximetry (%) 100 09/06/18 09:00 Constitutional: Yes: Obese Eyes: Yes: WNL, Conjunctiva Clear, EOM Intact HENT: Yes: WNL, Atraumatic, Normocephalic Neck: Yes: WNL, Supple, Trachea Midline Respiratory: Yes: WNL, Regular, CTA Bilaterally Gastrointestinal: Yes: WNL, Normal Bowel Sounds, Soft Renal/: Yes: WNL Cardiovascular: Yes: WNL, Regular Rate and Rhythm JVD: No Carotid Bruit: No PMI: Non-Displaced Heart Sounds: Yes: S1, S2 Murmur: Yes: Systolic Murmur, Grade 2 Musculoskeletal: Yes: WNL Extremities: Yes: WNL Edema: No Peripheral Pulses: 2+ Left Carotid, 2+ Right Carotid, 2+ Left Femoral, 2+ Right Femoral, 2+ Left Popliteal, 2+ Right Popliteal, 2+ Left Doralis Pedis, 2+ Right Dorsalis Pedis Integumentary: Yes: WNL Neurological: Yes: WNL, Alert, Oriented ...Motor Strength: WNL Psychiatric: Yes: WNL - Other Data Labs, Other Data: CBC, BMP 09/06/18 05:30 09/06/18 05:30 INR, PTT INR 1.08 (0.83-1.09) 09/05/18 20:19 Troponin, BNP 09/05/18 09/05/18 09/05/18 18:49 19:49 20:36 Troponin I Cancelled Cancelled < 0.02 B-Natriuretic Peptide Cancelled 35.6 09/06/18 09/06/18 09/06/18 01:25 03:15 05:30 Troponin I < 0.02 < 0.02 B-Natriuretic Peptide 42.0 Troponin, BNP 09/05/18 09/05/18 09/05/18 18:49 19:49 20:36 Troponin I Cancelled Cancelled < 0.02 B-Natriuretic Peptide Cancelled 35.6 09/06/18 09/06/18 09/06/18 01:25 03:15 05:30 Troponin I < 0.02 < 0.02 B-Natriuretic Peptide 42.0 Assessment/Plan The patient is a 53-year-old obese man, we have a history of hypertension, alcohol abuse and fatty levered, peptic ulcer disease, now admitted with chest pains. 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 Symptoms lasted for hours. The patient reports no limitations on effort. He walks without chest pains, shortness of breath, palpitations. The patient ruled out for myocardial infarction. There is no CHF. 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 There are no acute ECG changes. Please start Toprol-XL 50 mg daily for better blood pressure control. Please arrange for an echocardiogram. Also arrange for a pharmacological nuclear stress test. The patient is stable. May stop telemetry. We'll follow results.
[2018-09-06] MEDS: ASPIRIN 81 MG CHEWABLE TABLETS PO SCH (14:53)
--- NOTE | 2018-09-06 15:14 | ECHO ---
Name: MANNY TROTTER Exam:Adult Echocardiogram Study Date: 09/06/2018 11:16 AM Age: 53 yrs Reason For Study: Chest pain Height: 72 in Weight: 255 lb BSA: 2.4 m2 MMode/2D Measurements & Calculations IVSd: 0.99 cm LA dimension: 4.4 cm LVIDd: 5.0 cm ACS: 1.9 cm LVIDs: 4.0 cm LVPWd: 1.5 cm EDV(Teich): 118.9 ml LVOT diam: 1.9 cm ESV(Teich): 71.0 ml Doppler Measurements & Calculations Med Peak E' Justin: 6.2 cm/sec Lat Peak E' Justin: 9.8 cm/sec Procedure A complete two-dimensional transthoracic echocardiogram was performed (2D, M-mode, Doppler and color flow Doppler). Technically limited study. Left Ventricle The left ventricle is normal in size. Left ventricular systolic function is mild to moderately reduce d. Ejection Fraction = 40-45%. There is mild to moderate global hypokinesis of the left ventricle. Right Ventricle The right ventricle is not well visualized. Atria The left atrium is mildly dilated. Right atrial size is normal. Mitral Valve The mitral valve is normal in structure and function. There is no mitral regurgitation noted. Tricuspid Valve The tricuspid valve is normal in structure and function. No tricuspid regurgitation. Aortic Valve There is mild aortic sclerosis.;. No aortic regurgitation is present. Pulmonic Valve The pulmonic valve is not well visualized. Great Vessels The aortic root is normal size. Pericardium/Pleura There is no pericardial effusion. Interpretation Summary Technically limited study The left ventricle is normal in size. Left ventricular systolic function is mild to moderately reduced. There is mild to moderate global hypokinesis of the left ventricle. Ejection Fraction = 40-45%. The right ventricle is not well visualized. The left atrium is mildly dilated. Right atrial size is normal. There is mild aortic sclerosis.; No significant valvular regurgitations are seen There is no pericardial effusion. Previous study is not available for comparison Kermit Garcia MD 09/06/2018 03:14 PM
--- NOTE | 2018-09-06 17:28 | TRE ---
Protocol Name : ZEN Max Work Load (METS*10) : 137 Time In Exercise Phase : 00:12:00 Max. Systolic BP : 230 mmHg Max Diastolic BP : 90 mmHg Max Heart Rate : 150 BPM Max Predicted Heart Rate : 165 BPM Attending Physician : DR MANCILLA Reason For Termination : Target Heart Rate Achieved Reason for Test : CP Stress Protocol : ZEN Rest HR : 76 BPM PeakEx METs : 13.4 METS Arrhythmias : Ventricular Premature Beats, Isolated Resting ECG : Normal Recovery ECG Response (OLD) : Overall Impression : Normal stress test Chest Pain : No Chest Pain HR Response To Exercise : Normal Overall HR Response To Exercise BP Response To Exercise : Resting Hypertension with Exaggerated Response Functional Capacity : Above Average (> 20%) Diagnosis : 1. NEGATIVE STRESS TEST 2. HYPERTENSIVE BLOOD PRESSURE RESPONSE 3. FAIR EXERCISE TOLERANCE AND CAPACITY. PATIENT EXERCISED 12 MINUTES INTO STAGE 4 ZEN PROTOCOL AND ACHIEVED 90% OF MPTHR 4. NO SIGNIFICANT ECG ABNORMALITIES ARE SEEN. OCCASIONAL PVCS Confirmed by LAURENT REED, JOVAN ([id number]) on 09/06/2018 5:27:47 PM
[2018-09-06] MEDS ORDERED: metoPROLOL SUCCINATE 25 MG TAB.SR.24H (FP) PO ONE (22:34)
[2018-09-06] MEDS: amLODIPine BESYLATE 5 MG TABLET (FP) PO SCH (22:54)
--- NOTE | 2018-09-07 08:30 | PN ---
Progress Note, Physician - Current Medication List Current Medications: Active Medications Amlodipine Besylate (Norvasc -) 5 mg PO DAILY [facility] Last Admin: 09/06/18 22:54 Dose: 5 mg Aspirin (Asa -) 81 mg PO DAILY [facility] Last Admin: 09/06/18 14:53 Dose: 81 mg HCTZ/Losartan Potassium (Hyzaar -) 2 tab PO DAILY [facility] Last Admin: 09/06/18 09:38 Dose: 2 tab Metoprolol Succinate (Toprol Xl -) 50 mg PO DAILY [facility] Last Admin: 09/06/18 16:04 Dose: 50 mg Nitroglycerin (Nitrostat -) 0.4 mg SL Q5M PRN PRN Reason: FOR CHEST PAIN - Objective Vital Signs: Vital Signs Temperature 98.5 F 09/07/18 05:00 Pulse Rate 62 09/07/18 05:00 Respiratory Rate 20 09/07/18 05:00 Blood Pressure 142/92 09/07/18 05:00 O2 Sat by Pulse Oximetry (%) 98 09/07/18 06:00 Cardiovascular: Yes: S1, S2 Respiratory: Yes: Regular, CTA Bilaterally Gastrointestinal: Yes: Normal Bowel Sounds, Soft Labs: CBC, BMP 09/06/18 05:30 09/06/18 05:30 INR, PTT INR 1.08 (0.83-1.09) 09/05/18 20:19 Problem List - Problems (1) Chest pain Assessment/Plan: regular stress test negative--will discuss with cardio Code(s): R07.9 - CHEST PAIN, UNSPECIFIED Qualifiers: Chest pain type: unspecified Qualified Code(s): R07.9 - Chest pain, unspecified (2) LV dysfunction Assessment/Plan: cardio on board -on arb Code(s): I51.9 - HEART DISEASE, UNSPECIFIED (3) HTN (hypertension) Assessment/Plan: observe on current meds Code(s): I10 - ESSENTIAL (PRIMARY) HYPERTENSION
[2018-09-07] MEDS ORDERED: PT OWN MED DRAWER 7, Y5N ONE (09:21)
[2018-09-07] MEDS: amLODIPine BESYLATE 5 MG TABLET (FP) PO SCH (09:59)
[2018-09-07] MEDS: ASPIRIN 81 MG CHEWABLE TABLETS PO SCH (09:59)
[2018-09-07] MEDS: LOSARTAN 50MG/HCTZ 12.5MG 1 TAB (FP) PO SCH (09:59)
--- NOTE | 2018-09-07 11:14 | PN ---
Progress Note, Physician History of Present Illness: seen and examined today in [facility]. no overnight events. no new complaints. no further chest pain. - Current Medication List Current Medications: Active Medications Amlodipine Besylate (Norvasc -) 5 mg PO DAILY [facility] Last Admin: 09/07/18 09:59 Dose: 5 mg Aspirin (Asa -) 81 mg PO DAILY [facility] Last Admin: 09/07/18 09:59 Dose: 81 mg HCTZ/Losartan Potassium (Hyzaar -) 2 tab PO DAILY [facility] Last Admin: 09/07/18 09:59 Dose: 2 tab Metoprolol Succinate (Toprol Xl -) 50 mg PO DAILY [facility] Last Admin: 09/07/18 10:00 Dose: 50 mg Nitroglycerin (Nitrostat -) 0.4 mg SL Q5M PRN PRN Reason: FOR CHEST PAIN - Objective Vital Signs: Vital Signs Temperature 98.2 F 09/07/18 09:00 Pulse Rate 78 09/07/18 09:00 Respiratory Rate 20 09/07/18 09:00 Blood Pressure 145/89 09/07/18 09:00 O2 Sat by Pulse Oximetry (%) 98 09/07/18 06:00 Constitutional: Yes: No Distress, Calm Eyes: Yes: Conjunctiva Clear, EOM Intact HENT: Yes: Atraumatic, Normocephalic Neck: Yes: Supple, Trachea Midline Cardiovascular: Yes: Regular Rate and Rhythm, S1, S2. No: Bradycardia, Tachycardia, Pulse Irregular, Bruit, JVD, Gallop, Murmur, Rub, S3, S4, Varicosities Respiratory: Yes: Regular, CTA Bilaterally. No: Rales, Rhonchi, SOB, SOB on Exertion, Wheezes Gastrointestinal: Yes: Normal Bowel Sounds, Soft. No: Distention, Tenderness Breast(s): Yes: WNL Musculoskeletal: Yes: WNL Extremities: Yes: WNL Edema: No Peripheral Pulses WNL: Yes Peripheral Pulses: Left Doralis Pedis: 2+, Right Dorsalis Pedis: 2+ Neurological: Yes: Alert, Oriented Psychiatric: Yes: Alert, Oriented Labs: CBC, BMP 09/06/18 05:30 09/06/18 05:30 INR, PTT INR 1.08 (0.83-1.09) 09/05/18 20:19 - ....Imaging Chest X-ray: Report Reviewed, Image Reviewed EKG: Report Reviewed, Image Reviewed Other: Report Reviewed, Image Reviewed (tele-nsr, no events recorded) Assessment/Plan The patient is a 53-year-old obese man, we have a history of hypertension, alcohol abuse and fatty levered, peptic ulcer disease, now admitted with chest pains. 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 Symptoms lasted for hours. The patient reports no limitations on effort. He walks without chest pains, shortness of breath, palpitations. 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 There are no acute ECG changes. Please start Toprol-XL 50 mg daily for better blood pressure control. Echo 09/06/2018 showed Mild to moderate Global LV systolic dysfunction with an LVEF 40-45% An ETT was done 09/06/18 without nuclear imaging but pt performed well 12 minutes , no symptoms and no reported ECG abnl, no ischemia -pt states that he had a cardiac cath approx 2 years ago at [facility] and was told his coronaries were completely normal -states he had an echo with supervisor metal furniture assembly in Dr. Gutiérrez office recently that he believes was normal. -pt has a history of uncontrolled HTN and was uncontrolled on admission here Most likely scenario is that this is a NICM secondary to uncontrolled HTN and not due to CAD -no further ischemic work up is needed at this time. -would treat medically for presumed NICM with aggressive HTN control and CHF meds -HTN is better controlled but still above goal Recc to cont Toprol XL 50mg daily cannot uptitrate at this time due to mild sinus bradycardia Cont Hyzaar 100mg/50mg daily -can cont norvasc for now, consider uptitration or changing to nifedipine would also consider addition of Bidil or spironolactone No additional inpatient cardiac work up is needed at this time. Pt is acceptable for discharge home from a cardiac standpoint but would recc close outpatient cardiology fup within 1 week. Please call with any addtional questions.
[2018-09-07 14:49] VITALS: BP 160/97; PULSE 76; TEMP 98.3
[2018-09-07] MEDS ORDERED: amLODIPine BESYLATE 10 MG TABLET (FP) PO SCH (15:04)
--- NOTE | 2018-09-07 15:10 | DS ---
Physical Examination Vital Signs: Vital Signs Temperature 98.3 F 09/07/18 14:00 Pulse Rate 76 09/07/18 14:00 Respiratory Rate 20 09/07/18 14:00 Blood Pressure 160/97 09/07/18 14:00 O2 Sat by Pulse Oximetry (%) 98 09/07/18 14:00 Labs: CBC, BMP 09/06/18 05:30 09/06/18 05:30 Discharge Summary Reason For Visit: CHEST PAIN Current Active Problems Chest pain (Acute) HTN (hypertension) (Acute) LV dysfunction (Acute) Condition: Improved - Instructions Diet, Activity, Other Instructions: any chest pain return to ER Follow up with dr tiwari within one week to check bp Referrals: Alisia Tiwari MD [Staff Physician] - 1 Week Disposition: HOME - Home Medications Comprehensive Discharge Medication List: Ambulatory Orders Losartan/Hydrochlorothiazide [Losartan-Hctz 100-25 mg Tab] 1 each PO DAILY 09/05 Amlodipine Besylate [Norvasc -] 10 mg PO DAILY #30 tablet 09/07/18 Aspirin [ASA -] 81 mg PO DAILY tab.chew 09/07/18 Metoprolol Succinate [Toprol XL -] 50 mg PO DAILY #30 tab.sr.24h 09/07/18
== END 2018-09-07 15:45 | disposition home or self-care (01) ==
LOC: JER 17:14 → JERBED 21:26 → J4W 09-06 02:30
PROVIDERS: ADMIT Family Medicine; ATTEND Family Medicine
PROC: 3E033NZ Introduction of Analgesics, Hypnotics, Sedatives into Peripheral Vein, Percutaneous Approach (ICD-10-PCS; principal; 2018-09-05)
PROC: 3E033GC Introduction of Other Therapeutic Substance into Peripheral Vein, Percutaneous Approach (ICD-10-PCS; 2018-09-05)
DX: R07.9 Chest pain, unspecified (principal); I50.1 Left ventricular failure, unspecified; I11.0 Hypertensive heart disease with heart failure; K76.0 Fatty (change of) liver, not elsewhere classified; F10.99 Alcohol use, unspecified with unspecified alcohol-induced disorder; E66.9 Obesity, unspecified; Z68.36 Body mass index [BMI] 36.0-36.9, adult; Z87.11 Personal history of peptic ulcer disease
CPT/HCPCS: 36415; 70450-TC; 71045-TC-FY; 71275-TC; 74175-TC; 80048; 80053; 80061; 81003; 82550; 82553; 83036; 83721; 83735; 83880; 84100; 84484; 85025; 85610; 85730; 93005; 93010; 93017; 93018; 93306-TC; 99285-25; G0378; J0131

== ENCOUNTER 2019-04-13 08:59 | Emergency (ER) | payer BC, OTHER ==
[2019-04-13 09:21] VITALS: BP 134/78; PULSE 61; TEMP 98.7; BMI 38.6
--- NOTE | 2019-04-13 09:32 | PDOC ---
History of Present Illness - General Chief Complaint: Back Pain Stated Complaint: NECK PAIN Time Seen by Provider: 04/13/19 09:28 - History of Present Illness Initial Comments: 04/13/19 09:32 CHIEF COMPLAINT: neck pain HISTORY OF PRESENT ILLNESS: 54 yo M with hx of HTN presents to [facility] with neck pain x 1 month. Patient denies any inciting trauma or injury, denies recent MVA. He states that he just "woke up one morning and it started hurting , and it's getting worse." He has been taking Motrin and Aleve without relief. Denies headache, fever, back pain, radiating pain. Pain is worse with movement of neck, particularly to the right. Patient describes the pain as a sharp pain and is 6/10 at rest and 9/10 on palpation/movement. No recent travel or sick contacts. PAST MEDICAL HISTORY: Denies past medical history FAMILY HISTORY: Denies SOCIAL HISTORY Denies tobacco, alcohol, illicit drug use. SURGICAL HISTORY: Denies ALLERGIES: No known drug allergies REVIEW OF SYSTEMS General/Constitutional: Denies fever or chills. Denies weakness, weight change. HEENT: Denies change in vision. Denies ear pain or discharge. Denies sore throat. Cardiovascular: Denies chest pain or shortness of breath. Respiratory: Denies cough, wheezing, or hemoptysis. Gastrointestinal: Denies nausea, vomiting, diarrhea or constipation. Denies rectal bleeding. Genitourinary: Denies dysuria, frequency, or change in urination. Musculoskeletal: Neck pain x 1 month. Skin: Denies rash or easy bruising. Neurologic: Denies headache, vertigo, loss of consciousness, or loss of sensation. PHYSICAL EXAM General Appearance: Well-appearing, appropriately dressed. No apparent distress , no intoxication. HEENT: EOMI, PERRLA, normal ENT inspection, normal voice, TMs normal, pharynx normal. No conjunctival pallor. No photophobia, scleral icterus. Neck: Supple. Trachea midline. No tenderness, rigidity, carotid bruit, stridor , lymphadenopathy, or thyromegaly. Respiratory/Chest: Lungs CTAB. No shortness of breath, chest tenderness, respiratory distress, accessory muscle use. No crackles, rales, rhonchi, stridor , wheezing, dullness Cardiovascular: RRR. S1, S2. No JVD, murmur, bradycardia, tachycardia. Vascular Pulses: Dorsalis-Pedis (R): 2+, Dorsalis-Pedis (L): 2+ Gastrointestinal/Abdominal: Normal bowel sounds. Abdomen soft, non-distended. No tenderness or rebound tenderness. No organomegaly, pulsatile mass, guarding , hernia, hepatomegaly, splenomegaly. Lymphatic: No adenopathy, tenderness. Musculoskeletal/Extremities: Marked TTP to cervical spine, pain elicited with R lateral movement of neck. Normal inspection. FROM of all extremities, normal capillary refill. Pelvis Stable. No CVA tenderness. No tenderness to extremities, pedal edema, swelling, erythema or deformity. Integumentary: Appropriate color, dry, warm. No cyanosis, erythema, jaundice or rash Neurologic: general contractor II-XII intact. Fully oriented, alert. Appropriate mood/affect. Motor strength 5/5. No appreciable EOM palsy, facial droop or sensory deficit. 04/13/19 09:54 04/13/19 10:46 Past History - Past Medical History Allergies/Adverse Reactions: Allergies Allergy/AdvReac Type Severity Reaction Status Date / Time No Known Allergies Allergy Verified 04/13/19 09:17 Home Medications: Ambulatory Orders Losartan/Hydrochlorothiazide [Losartan-Hctz 100-25 mg Tab] 1 each PO DAILY 09/05 Amlodipine Besylate [Norvasc -] 10 mg PO DAILY #30 tablet 09/07/18 Aspirin [ASA -] 81 mg PO DAILY tab.chew 09/07/18 Metoprolol Succinate [Toprol XL -] 50 mg PO DAILY #30 tab.sr.24h 09/07/18 Cyclobenzaprine HCl 10 mg PO HS #10 tablet 04/13/19 COPD: No HTN: Yes - Surgical History Orthopedic Surgery: (B/L KNEE ARTHROSCOPY) - Immunization History Immunization Up to Date: Yes - Suicide/Smoking/Psychosocial Hx Smoking History: Never smoked Have you smoked in the past 12 months: No Hx Alcohol Use: Yes Drug/Substance Use Hx: No Substance Use Type: None *Physical Exam - Vital Signs Last Vital Signs Temp Pulse Resp BP Pulse Ox 98.7 F 61 20 134/78 100 04/13/19 09:17 04/13/19 09:17 04/13/19 09:17 04/13/19 09:17 04/13/19 09:17 Medical Decision Making - Medical Decision Making 04/13/19 10:49 54 yo M with hx of HTN presents [facility] with neck pain x 1 month -valium -cervical spine CT Patient reassessed after administration of valium, states he is feeling better and "can move my neck a little more now." CT indicative of degenerative disc disease. NSAIDS, muscle relaxants rx sent to pharm. Advised patient to f/u with ortho if symptoms persist; advised patient of signs and symptoms for return to ER; patient verbalized understanding and agrees to plan. *DC/Admit/Observation/Transfer Diagnosis at time of Disposition: Degenerative cervical disc - Discharge Dispostion Disposition: HOME Condition at time of disposition: Stable Decision to Admit order: No - Prescriptions Prescriptions: Cyclobenzaprine HCl 10 mg PO HS #10 tablet - Referrals Referrals: Rudy Paz DO [Staff Physician] - - Patient Instructions Printed Discharge Instructions: DI for Degenerative Disc Disease Additional Instructions: Please take medications as prescribed. Follow up with orthopedics within the next week for further evaluation and management of your neck pain. If you develop any fever, headache, worsening pain, or any new or worsening symptoms, please return to the ER. - Post Discharge Activity Forms/Work/School Notes: Back to Work
[2019-04-13] MEDS ORDERED: diazePAM 5 MG TABLET PO ONE (09:56)
[2019-04-13] MEDS ORDERED: diazePAM 5 MG TABLET ONE (09:59)
== END 2019-04-13 11:26 | disposition home or self-care (01) ==
LOC: JERFT 08:59
DX: M50.30 Other cervical disc degeneration, unspecified cervical region (principal); I10 Essential (primary) hypertension
CPT/HCPCS: 72125-TC; 99282-25

== ENCOUNTER 2020-04-04 11:37 | Emergency (ER) | payer BC, OTHER ==
[2020-04-04 11:48] VITALS: BP 122/70; PULSE 71; TEMP 98.9; BMI 38.0
--- NOTE | 2020-04-04 12:12 | PDOC ---
History of Present Illness - General Chief Complaint: Hemorrhoids Stated Complaint: RECTAL PAIN (HEMORRHOIDS) Time Seen by Provider: 04/04/20 11:48 - History of Present Illness Initial Comments: 04/04/20 12:10 55-year-old male with a past medical history of hypertension takes daily aspirin presents for evaluation of a painful hemorrhoid. Under the care of his primary care physician he has been imaged without indication of any intra-abdominal pathology presents for exacerbation of hemorrhoid symptoms over the last week. Past History - Medical History Allergies/Adverse Reactions: Allergies Allergy/AdvReac Type Severity Reaction Status Date / Time No Known Allergies Allergy Verified 04/04/20 12:07 Home Medications: Ambulatory Orders Losartan/Hydrochlorothiazide [Losartan-Hctz 100-25 mg Tab] 1 each PO DAILY 09/05/18 Amlodipine Besylate [Norvasc -] 10 mg PO DAILY #30 tablet 09/07/18 Aspirin [ASA -] 81 mg PO DAILY tab.chew 09/07/18 Metoprolol Succinate [Toprol XL -] 50 mg PO DAILY #30 tab.sr.24h 09/07/18 Cyclobenzaprine HCl 10 mg PO HS #10 tablet 04/13/19 Docusate Sodium [Colace] 100 mg PO TID #30 capsule 04/04/20 Hydrocortisone Acetate [Anusol Hc Suppository -] 25 mg RC BID #28 supp.rect 04/04/20 COPD: No HTN: Yes - Surgical History Orthopedic Surgery: (B/L KNEE ARTHROSCOPY) - Immunization History Immunization Up to Date: Yes - Psycho-Social/Smoking History Smoking History: Never smoked Have you smoked in the past 12 months: No Information on smoking cessation initiated: No - Substance Abuse Hx (Audit-C & DAST Scrn) How often the patient has a drink containing alcohol: Never Score: In Men: 4 or > Positive; In Women: 3 or > Positive: 0 Screen Result (Pos requires Nsg. Audit-10AR): Negative Review of Systems - Review of Systems Constitutional: No: Fever ABD/GI: Yes: See HPI *Physical Exam - Vital Signs Last Vital Signs Temp Pulse Resp BP Pulse Ox 98.9 F 71 16 122/70 96 04/04/20 11:46 04/04/20 11:46 04/04/20 11:46 04/04/20 11:46 04/04/20 11:46 - Physical Exam 04/04/20 12:10 There is a large external hemorrhoid at the 9 o'clock position with appropriate tenderness. No other areas of tenderness remainder of the anus is normal Medical Decision Making - Medical Decision Making 04/04/20 12:11 Anusol and Colace follow-up with GI I have reviewed the pathophysiology with the patient. They are in agreement with the treatment plan all questions were answered to their satisfaction. Understanding for follow-up without fail was also conveyed to the patient. Again they are in agreement. Discharge - Discharge Information Problems reviewed: Yes Clinical Impression/Diagnosis: Hemorrhoid Condition: Stable Disposition: HOME - Admission No - Additional Discharge Information Prescriptions: Hydrocortisone Acetate [Anusol Hc Suppository -] 25 mg RC BID #28 supp.rect Docusate Sodium [Colace] 100 mg PO TID #30 capsule - Follow up/Referral Referrals: Alisia Adamson MD [Primary Care Provider] - Chepe Carmona DO [Staff Physician] - - Patient Discharge Instructions Additional Instructions: Please use the Anusol suppositories as directed as well as the stool softener. Return to the emergency room for worsening symptoms and without fail follow-up with gastroenterology in 1 to 2 days for further evaluation and treatment options. - Post Discharge Activity
== END 2020-04-04 12:18 | disposition home or self-care (01) ==
LOC: JERFT 11:37
DX: K64.9 Unspecified hemorrhoids (principal)
CPT/HCPCS: 99282-25

== ENCOUNTER 2020-05-04 04:50 | Day surgery (SDC) | payer BC, OTHER ==
--- OUTSIDE RECORDS SUMMARY | 2020-04-25 07:59 | XMS ---
:1965 Author Organization [facility] Support Name Relationship Address Phone [facility] Unavailable [address] [phone] [place] [address] JHONNY TROTTER [address] [place] [address] Re-disclosure Warning The records that you are about to access may contain information from federally- assisted alcohol or drug abuse programs. If such information is present, then the following federally mandated warning applies: This information has been disclosed to you from records protected by federal confidentiality rules (42 CFR part 2). The federal rules prohibit you from making any further disclosure of this information unless further disclosure is expressly permitted by the written consent of the person to whom it pertains or as otherwise permitted by 42 CFR part 2. A general authorization for the release of medical or other information is NOT sufficient for this purpose. The Federal rules restrict any use of the information to criminally investigate or prosecute any alcohol or drug abuse patient.The records that you are about to access may contain highly sensitive health information, the redisclosure of which is protected by Article 27-F of the [facility] Public Health law. If you continue you may haveaccess to information: Regarding HIV / AIDS; Provided by facilities licensed or operated by the [facility] Office of Mental Health; or Provided by the [facility] Office for People With Developmental Disabilities. If such information is present, then the following [facility] mandated warning applies: This information has been disclosed to you from confidential records which are protected by state law. State law prohibits you from making any further disclosure of this information without the specific written consent of the person to whom it pertains, or as otherwise permitted by law. Any unauthorized further disclosure in violation of state law may result in a fine or senior care sentence or both. A general authorization for the release of medical or other information is NOT sufficient authorization for further disclosure. Insurance Providers Payer Policy type Policy ID Covered Covered green party's Policy Pl an name / Coverage green party ID relationship to Blum Inf ormation type blum BC PPO [id number] SP [id number] I CBP [id number] SP [id number] OUTPT BC PPO [id number] SP [id number] BC PPO [id number] SP [id number] [facility] CBP [id number] SP [id number] OUTPT BC PPO [id number] SP [id number] Results ID Date Data Source [id number] 04/25/2020 06:31:00 AM EDT [facility] Received: 04/25/2020 at 04:33:00 QTE : [facility], [address]Walt MD Received: 04/25/2020 at 04:33:00 QTE : [facility] Real [place], [address]Walt MD Received: 04/25/2020 at 04:33:00 QTE : Maria Teresa Phan [place], [address], Walt Henson MD Name Value Range Interpretation Description Data Source(s ) Supporting Code Document(s ) aPTT in [facility] Platelet poor Diagnostics plasma by Coagulation assay INR in Platelet [facility] poor plasma by Diagnostics Coagulation assay Prothrombin [facility] time (PT) Diagnostics ID Date Data Source [id number] 04/25/2020 06:31:00 AM EDT [facility] Received: 04/25/2020 at 04:33:00 QTE : [place], [address]Walt MD Received: 04/25/2020 at 04:33:00 QTE : [facility], [address]Walt MD Received: 04/25/2020 at 04:33:00 QTE : [facility] [address], [place], [address], Walt Henson MD Name Value Range Interpretation Description Data Sup porting Code Source(s) Document(s ) Glucose [facility] [Mass/volume] in Diagnostics Serum or Plasma Urea nitrogen [facility] [Mass/volume] in Diagnostics Serum or Plasma Creatinine [facility] [Mass/volume] in Diagnostics Serum or Plasma Glomerular [facility] filtration Diagnostics rate/1.73 sq M.predicted [Volume Rate/Area] in Serum, Plasma or Blood by Creatinine-based formula (MDRD) Glomerular [facility] rate/1.73 sq M predicted among blacks [Volume Rate/Area] in Serum or Plasma by Creatinine-based formula (MDRD) Urea [facility] nitrogen/Creatinine Diagnostic s [Mass Ratio] in Serum or Plasma Sodium [facility] [Moles/volume] in Diagnostics Serum or Plasma Potassium [facility] [Moles/volume] in Diagnostics Serum or Plasma Chloride [facility] [Moles/volume] in Diagnostics Serum or Plasma Carbon dioxide, [facility] total Diagnostics [Moles/volume] in Serum or Plasma Calcium [facility] [Mass/volume] in Diagnostics Serum or Plasma Protein [facility] [Mass/volume] in Diagnostics Serum or Plasma Albumin [facility] [Mass/volume] in Diagnostics Serum or Plasma Globulin [facility] [Mass/volume] in Diagnostics Serum by calculation Albumin/Globulin [facility] [Mass Ratio] in Diagnostics Serum or Plasma Bilirubin.total [facility] [Mass/volume] in Diagnostics Serum or Plasma Alkaline [facility] phosphatase Diagnostics [Enzymatic activity/volume] in Serum or Plasma Aspartate [facility] aminotransferase Diagnostics [Enzymatic activity/volume] in Serum or Plasma Alanine [facility] aminotransferase Diagnostics [Enzymatic activity/volume] in Serum or Plasma ID Date Data Source [id number] 04/25/2020 06:31:00 AM EDT [facility] Received: 04/25/2020 at 04:33:00 QTE : [facility] Maria Teresa Richy [place], [address], Walt Henson MD Received: 04/25/2020 at 04:33:00 QTE : [facility] Maria Teresa Franches[address] [place], [address], Walt Henson MD Received: 04/25/2020 at 04:33:00 QTE : [facility] Maria Teresa Franches[address] [place], [address], Walt Henson MD Name Value Range Interpretation Description Data Sup porting Code Source(s) Document(s ) Leukocytes 5.9 3.8-10. Normal (applies [facility] [#/volume] in Thousand 8 to non-numeric Diagnostics Blood by /uL results) Automated count Erythrocytes 5.53 4.20-5. Normal (applies [facility] [#/volume] in Million/ 80 to non-numeric Diagnostics Blood by uL results) Automated count Hemoglobin 14.5 13.2-17 Normal (applies [facility] [Mass/volume] in g/dL .1 to non-numeric Diagnost ics Blood results) Hematocrit 43.4 % 38.5-50 Normal (applies [facility] [Volume .0 to non-numeric Diagnostics Fraction] of results) Blood by Automated count Erythrocyte mean 78.5 fL 80.0-10 Below low normal [facility] corpuscular 0.0 Diagnostics volume [Entitic volume] by Automated count Erythrocyte mean 26.2 pg 27.0-33 Below low normal [facility] corpuscular .0 Diagnostics hemoglobin [Entitic mass] by Automated count Erythrocyte mean 33.4 32.0-36 Normal (applies [facility] corpuscular g/dL .0 to non-numeric Diagnostics hemoglobin results) concentration [Mass/volume] by Automated count Erythrocyte 15.7 % 11.0-15 Above high [facility] distribution .0 normal Diagnostics width [Ratio] by Automated count Platelets 337 140-400 Normal (applies [facility] [#/volume] in Thousand to non-numeric Diagnostics Blood by /uL results) Automated count Platelet mean 10.8 fL 7.5-12. Normal (applies [facility] volume [Entitic 5 to non-numeric Diagnosti cs volume] in Blood results) by Liat ID Date Data Source [id number] 04/04/2020 10:21:00 AM EDT [facility] Name Value Range Interpretation Code Description Data Maday rce(s) Supporting Document(s ) SARS-COV-2 [facility] RNA RESP Diagnostics QL DARSHAN+PROBE This lab was ordered by YONI dye nd reported by [employer] CINTHYA. ID Date Data Source [id number] 12/22/2019 01:24:00 PM EDT [facility] Name Value Range Interpretation Code Description Data Maday rce(s) Supporting Document(s ) SARS-COV-2 [facility] RESP Diagnostics QL DARSHAN+PROBE This lab was ordered by Yonathan SILVER and reported by ERASTO GROSS. Procedure
--- OUTSIDE RECORDS SUMMARY | 2020-05-04 05:21 | XMS ---
:1965 Author Organization [facility] Support Name Relationship Address Phone [facility], [facility] OF EDUCATION Unavailable [address] [place] [address] [facility] Unavailable [address] [phone] [place] [id number] JHONNY TROTTER [address] [place] [address] Re-disclosure Warning The records that you are [...] is protected by Article 27-F of the [facility] Public Health law. If you continue you may haveaccess to information: Regarding HIV / AIDS; Provided by facilities licensed or operated by the [facility] Office of Mental Health; or Provided by the [facility] Office for People With Developmental Disabilities. If such information is present, then the following [facility] mandated warning applies: This information [...] may result in a fine or senior living sentence or both. A general authorization for the release of medical or other information is NOT sufficient authorization for further disclosure. Insurance Providers Payer Policy type Policy ID Covered Covered constitution party's Policy Pl an name / Coverage constitution party ID relationship to Paez Inf ormation type paez BC PPO [id number] SP [id number] GHI CBP [id number] SP [id number] OUTPT BC PPO [id number] SP [id number] BC PPO [id number] SP [id number] GHI CBP [id number] SP [id number] OUTPT BC PPO [id number] SP [id number] Results ID Date Data Source [id number] 04/29/2020 10:35:00 AM EDT [facility] Name Value Range Interpretation Description Data Sup porting Code Source(s) Document(s ) SARS [facility] coronavirus 2 RNA This lab was ordered by [facility] and reported by [facility]. ID Date Data Source [id number] 04/25/2020 08:25:00 AM EDT [facility] Received: 04/25/2020 at 04:33:00 QTE : Maria Teresa Phan TeterborERICA torrez, [id number] MD Received: 04/25/2020 at 04:33:00 QTE : Maria Teresa Phan TeterborERICA torrez, [id number] MD Received: 04/25/2020 at 04:33:00 QTE : [facility] Real [place] torrez, [address], Walt Henson MD Name Value Range Interpretation Description Data Source(s ) Supporting Code Document(s ) aPTT in 30 sec 22-34 Normal (applies [facility] Platelet poor to non-numeric Diagnostics plasma by results) Coagulation assay This test has not been validated for mon itoringunfractionated heparin therapy. For testing thatis validated for this type o f therapy, please referto the Heparin Anti-Xa assay (test code 65745).For additional i nformation, please refer tohttp://education.First Meta/ faq/SEH498(This link is being provided forinformational/educational purposes on ly.) INR in Platelet poor plasma 1.0 Normal (applies to [facility] by Coagulation assay non-numeric results) Reference Range 0.9- 1.1Moderate-intensity Warfarin Therapy 2.0-3.0Higher-intensity Warfarin Therapy 3.0-4.0 Prothrombin time (PT) 10.7 sec 9.0-11.5 Normal (applies to [facility] non-numeric results) ID Date Data Source [id number] 04/25/2020 08:25:00 AM EDT [facility] Received: 04/25/2020 at 04:33:00 QTE : [place], [address], Walt Henson MD Received: 04/25/2020 at 04:33:00 QTE : [place], [address], Walt Henson MD Received: 04/25/2020 at 04:33:00 QTE : [facility], [place], [address], Walt Henson MD Name Value Range Interpretation Description Data Source(s ) Supporting Code Document(s ) Glucose 86 mg/dL 65-99 Normal (applies to [facility] [Mass/volum non-numeric Diagnostics e] in Serum results) or Plasma Fasting reference interval Urea nitrogen 8 mg/dL 7-25 Normal (applies to [facility] [Mass/volume] in Serum non-numeric results) or Plasma Creatinine 0.89 mg/dL 0.70-1.33 Normal (applies to [facility] [Mass/volume] in Serum non-numeric results) or Plasma For patients >49 years of age, the refer ence limitfor Creatinine is approximately 13% higher for peopleidentified as -A merican. Glomerular filtration 95 mL/min/1.73m2 > OR = Normal (applies [facility] rate/1.73 sq 60 to non-numeric Diagnostics M.predicted [Volume results) Rate/Area] in Serum, Plasma or Blood by Creatinine-based formula (MDRD) Glomerular filtration 110 mL/min/1.73m2 > OR = Normal (applies [facility] rate/1.73 sq M 60 to non-numeric Diagnostic s predicted among blacks results) [Volume Rate/Area] in Serum or Plasma by Creatinine-based formula (MDRD) Urea NOT APPLICABLE 6-22 [facility] nitrogen/Creatinine (calc) Diagnostic s [Mass Ratio] in Serum or Plasma Sodium [Moles/volume] 139 mmol/L 135-146 Normal (applies Q uest in Serum or Plasma to non-numeric Diagno stics results) Potassium 3.6 mmol/L 3.5-5.3 Normal (applies [facility] [Moles/volume] in to non-numeric Diagnos tics Serum or Plasma results) Chloride 97 mmol/L 98-110 Below low normal [facility] [Moles/volume] in Diagnostics Serum or Plasma Carbon dioxide, total 32 mmol/L 20-32 Normal (applies Qu est [Moles/volume] in to non-numeric Diagnos tics Serum or Plasma results) Calcium [Mass/volume] 10.0 mg/dL 8.6-10.3 Normal (applies Q uest in Serum or Plasma to non-numeric Diagno stics results) Protein [Mass/volume] 7.9 g/dL 6.1-8.1 Normal (applies Qu est in Serum or Plasma to non-numeric Diagno stics results) Albumin [Mass/volume] 4.8 g/dL 3.6-5.1 Normal (applies Qu est in Serum or Plasma to non-numeric Diagno stics results) Globulin [Mass/volume] 3.1 g/dL (calc) 1.9-3.7 Normal (applies [facility] in Serum by to non-numeric Diagnostics calculation results) Albumin/Globulin [Mass 1.5 (calc) 1.0-2.5 Normal (applies [facility] Ratio] in Serum or to non-numeric Diagno stics Plasma results) Bilirubin.total 0.5 mg/dL 0.2-1.2 Normal (applies [facility] [Mass/volume] in Serum to non-numeric Di agnostics or Plasma results) Alkaline phosphatase 53 U/L 35-144 Normal (applies Que st [Enzymatic to non-numeric Diagnostics activity/volume] in results) Serum or Plasma Aspartate 34 U/L 10-35 Normal (applies [facility] aminotransferase to non-numeric Diagnost ics [Enzymatic results) activity/volume] in Serum or Plasma Alanine 30 U/L 9-46 Normal (applies [facility] aminotransferase to non-numeric Diagnost ics [Enzymatic results) activity/volume] in Serum or Plasma ID Date Data Source [id number] 04/25/2020 08:25:00 AM EDT [facility] Received: 04/25/2020 at 04:33:00 QTE : [facility], [address], [place], [address], Walt Henson MD Received: 04/25/2020 at 04:33:00 QTE : [facility], Maria Teresa [address], [place], [address], Walt Henson MD Received: 04/25/2020 at 04:33:00 QTE : [facility], [address], [place], [address], Walt Henson MD Name Value Range Interpretation [...] results) by Liat ID Date Data Source [id number] 04/04/2020 10:21:00 AM EDT [facility] Name Value Range Interpretation Code Description Data Maday rce(s) Supporting Document(s ) SARS-COV-2 [facility]P [facility] QL DARSHAN+PROBE This lab was ordered by YONI dye nd reported by [facility]. ID Date Data Source [id number] 12/22/2019 01:24:00 PM EDT [facility] Name Value Range Interpretation Code Description Data Maday rce(s) Supporting Document(s ) SARS-COV-2 [facility] QL DARSHAN+PROBE This lab was ordered by Yonathan SILVER and reported by [facility]. Procedure
[2020-05-04] MEDS ORDERED: LIDOCAINE HCL/PF 2% SDV 5ML VIAL ONE (11:45)
[2020-05-04] MEDS ORDERED: DEXAMETHASONE SOD PHOSPHATE 4 MG/1 ML VIAL ONE (11:45)
[2020-05-04] MEDS ORDERED: MIDAZOLAM HCL 2 MG/2 ML SINGLE DOSE VIAL ONE ×2 (11:45→13:06)
--- NOTE | 2020-05-04 12:10 | HP ---
History & Physical Update - History History: No Change - Physical Physical: No Change - Assessment Assessment: No Change - Plan Plan: No Change
[2020-05-04] MEDS ORDERED: ONDANSETRON 4 MG/2 ML VIAL IVPUSH PRN (12:16)
[2020-05-04] MEDS ORDERED: oxyCODONE HCL 5 MG TABLET PO PRN ×3 (12:16→21:48)
[2020-05-04] MEDS ORDERED: LIDOCAINE 1%/EPI 1:100000 (50 ML MULTI DOSE VIAL) ONE (12:24)
[2020-05-04] MEDS ORDERED: LACTATED RINGERS SOLUTION 1,000 ML IV SCH ×2 (12:30→23:30)
[2020-05-04] MEDS ORDERED: ceFAZolin SODIUM 1 GM VIAL IVPB ONE (12:47)
[2020-05-04] MEDS ORDERED: ceFAZolin SODIUM 1 GM VIAL ONE (12:48)
[2020-05-04] MEDS ORDERED: LIDOCAINE 1%/EPI 1:100000 (50 ML MULTI DOSE VIAL) NR ONE (12:50)
--- NOTE | 2020-05-04 14:09 | OP ---
Operative Note - Note: Operative Date: 05/04/20 Pre-Operative Diagnosis: HEMORRHOIDS Operation: EUA, stapled hemorrhoidectomy with PPH 3 and excision of hypertrophic anal papilla Findings: Large prolapsing stage 4 hemorrhoids and hypertrophic anal papilla Post-Operative Diagnosis: Other (Stage 4 hemorrhoids and hypertrophic anal papilla) Surgeon: Luis Vázquez Anesthesia: Spinal Specimens Removed: hemorrhoids and anal papilla Estimated Blood Loss (mls): 25 Operative Report Dictated: Yes
[2020-05-04] MEDS ORDERED: oxyCODONE HCL 5 MG TABLET ONE ×2 (18:22→19:49)
[2020-05-04] MEDS ORDERED: ACETAMINOPHEN 325 MG TABLET (FP) ONE (20:35)
[2020-05-04] MEDS ORDERED: ACETAMINOPHEN 325 MG TABLET (FP) PO PRN ×2 (21:43→21:48)
[2020-05-05 03:04] VITALS: BMI 40.3
[2020-05-05] MEDS ORDERED: HYDROmorphone HCL 2 MG TABLET PO ONE (05:26)
[2020-05-05] MEDS ORDERED: HYDROmorphone HCL 2 MG TABLET PO PRN ×2 (05:26→14:00)
[2020-05-05] MEDS ORDERED: amLODIPine BESYLATE 10 MG TABLET (FP) PO SCH (10:15)
[2020-05-05] MEDS ORDERED: IBUPROFEN 400 MG TABLET (FP) PO PRN (10:15)
[2020-05-05] MEDS ORDERED: LOSARTAN POTASSIUM 100 MG TABLET PO SCH (10:30)
[2020-05-05] MEDS ORDERED: HYDROCHLOROTHIAZIDE 25 MG TABLET (FP) PO SCH (10:30)
[2020-05-05] MEDS ORDERED: LIDOCAINE HCL 5% TOP OINTMENT 50 GM TUBE TP PRN (11:01)
[2020-05-05] MEDS ORDERED: PT OWN MED DRAWER 7, Y5N ONE (11:59)
[2020-05-05] MEDS ORDERED: PSYLLIUM 5.85 GM PACKET PO SCH (14:00)
[2020-05-05 18:15] VITALS: BP 131/70; PULSE 75; TEMP 100
--- NOTE | 2020-05-06 12:33 | OP ---
DATE OF OPERATION: 05/04/2020 PROCEDURE: Examination under anesthesia, stapled hemorrhoidectomy with PPH3, and excision of hypertrophic anal papilla. PREOPERATIVE DIAGNOSIS: External hemorrhoids and stage 2 hemorrhoids. POSTOPERATIVE DIAGNOSIS: Stage 4 hemorrhoids and hypertrophic anal papilla. SURGEON: Luis Vázquez MD ANESTHESIA: Spinal. FINDINGS AND PROCEDURE: This is a 55-year-old male who presents with a painful perianal mass between 5 and 6 o'clock position, which was about 1 cm in size, tender, and was initially presumed to be a thrombosed external hemorrhoid. He also has protruding internal hemorrhoids on Valsalva maneuver at the right posterior and right anterior hemorrhoidal column. Patient was initially managed with sitz baths, stool softeners, and pain relievers and was re-evaluated a month after where the mass was still present and char filter tank tender head and making the patient uncomfortable during defecation. So, patient was advised examination under anesthesia, possible hemorrhoidectomy, and consent was obtained after discussing the risks, benefits, and alternatives to the procedure. Patient was brought to the operating room and placed in sitting position. Spinal anesthesia was administered. The patient was then placed in lithotomy position. The perineum was prepped and draped in usual sterile fashion. On inspection, patient was noted to have multiple large prolapsing internal hemorrhoids, ranging from 2 to 3 cm in size. The right anterior was about 3 x 2 cm, the right posterior was about 2 x 2 cm and the left lateral column about 2 x 2 cm and with multiple satellite hemorrhoids in between. So, it was then decided upon to perform the hemorrhoidectomy using the PPH3 stapler device for stage 4 hemorrhoids. The anal dilator was inserted first, followed by insertion of the anoscope. The anoscope was then anchored to the perineal skin with silk 0 sutures. Afterwards, the rotating anoscope was inserted, and a pursestring suture using Prolene 2-0 was made about 2 cm above the dentate line at the level of the base of the internal hemorrhoids. After the pursestring was applied, the anvil of the PPH3 stapler was inserted proximal to the pursestring, and the pursestring was tied. The PPH3 was then closed and fired and held for about 30 seconds for hemostasis. The PPH3 was opened, and about 1.0 cm cuff of rectal mucosa incorporating the hemorrhoids was removed. The staple line was inspected and was noted to be free of active bleeding. The hypertrophic anal papilla was excised using Bovie cautery and closed with a continuous Vicryl 3-0 suture. A small piece of Xeroform gauze was inserted to aid in further hemostasis, and the perineum was covered with ABD pad. The patient was placed back in supine position and transferred to the postanesthesia care unit in satisfactory condition. ESTIMATED BLOOD LOSS: About 35 mL. WOUND CLASS: Contaminated. The patient received 3 g of Ancef prior to the start of the procedure. Edward [id number] MTDD
--- NOTE | 2020-05-08 17:25 | PATH ---
Surgical Pathology Report Patient Name: MANNY TROTTER Med. Rec. #: [id number] /Age/Gender: 1965 (Age: 55) / M Account: [id number] Location: [facility] Taken: 05/04/2020 Received: 05/07/2020 Reported: 05/08/2020 Physicians: Luis Vázquez M.D. Specimen(s) Received A: ANAL PAPILLA B: HEMORRHOIDS Clinical History Internal hemorrhoids Final Diagnosis A. ANAL PAPILLA, EXCISION: CONSISTENT WITH HYPERTROPHIED ANAL PAPILLA. B. HEMORRHOIDS, HEMORRHOIDECTOMY: POLYPOID SQUAMOCOLUMNAR MUCOSA WITH DILATED THICK WALLED CONGESTED SUBMUCOSAL VESSELS CONSISTENT WITH HEMORRHOIDS. Electronically Signed Dorcas Man M.D. Gross Description A. Received in formalin labeled "anal papilla," is a 1.4 x 1.0 x 1.0 cm vega-brown, polypoid portion of skin. The base is inked black and the specimen is serially sectioned. The specimen is entirely submitted in one cassette. B. Received in formalin labeled "hemorrhoids" is a 5.0 x 2.0 x 1.4 cm pugh/brown portion of mucosal tissue. Sectioning reveals hemorrhagic parenchyma. Scrap Separator sections are submitted in 2 cassettes. /05/07/2020 saudi/05/07/2020
== END 2020-05-05 16:45 | disposition home or self-care (01) ==
LOC: JASU-SURG 04:50 → J5S 20:56 → JASU-SURG 05-05 16:45
PROVIDERS: ATTEND Surgery
PROC: 0DBQXZZ Excision of Anus, External Approach (ICD-10-PCS; 2020-05-04)
PROC: 06BY0ZC Excision of Hemorrhoidal Plexus, Open Approach (ICD-10-PCS; principal; 2020-05-04 12:00)
DX: K64.3 Fourth degree hemorrhoids (principal); K64.4 Residual hemorrhoidal skin tags
CPT/HCPCS: 88304-TC; 94010; 94660; 94760

== ENCOUNTER 2021-12-19 14:10 | Emergency (ER) | payer BC, OTHER ==
[2021-12-19 14:26] VITALS: TEMP 98.1; BMI 35.9
[2021-12-19] MEDS ORDERED: MECLIZINE HCL 25 MG TABLET (FP) PO ONE (15:23)
[2021-12-19] MEDS ORDERED: MECLIZINE HCL 12.5 MG TABLET ONE (15:31)
[2021-12-19 15:57] LABS: BASO % 0.7 % (0-2.0); EOS % 1.7 % (0-4.5); HEMATOCRIT 42.3 % (35.4-49); HEMOGLOBIN 14.4 GM/dL (11.7-16.9); LYMPH % 38.9 % (8-40); MCH 28.7 pg (25.7-33.7); MEAN CELL VOLUME 84.4 fl (80-96); MEAN PLT VOLUME 8.2 fl (7.5-11.1); MONO % 9.5 % (3.8-10.2); NEUT % 49.2 % (42.8-82.8); PLATELET COUNT 227 10^3/uL (134-434); RBC 5.02 M/mm3 (4.00-5.60); RDW 15.8 % (11.9-15.9); WHITE BLOOD COUNT 5.3 K/mm3 (4.0-10.0)
[2021-12-19 16:19] LABS: CALCIUM 9.2 mg/dL (8.5-10.1)
[2021-12-19 16:20] LABS: ALBUMIN 4.2 g/dl (3.4-5.0); BLOOD UREA NITROGEN 16.5 mg/dL (7-18)
[2021-12-19 16:23] LABS: CREATININE 0.9 mg/dL (0.55-1.3)
[2021-12-19 16:24] LABS: TOT PROT 7.5 g/dl (6.4-8.2)
[2021-12-19 16:25] LABS: BILIRUBIN,TOTAL 0.4 mg/dL (0.2-1)
[2021-12-19 16:28] LABS: N-TERMINAL BNP 41.6 pg/ml (5-125)
[2021-12-19 16:59] LABS: INR 1.03 (0.83-1.09); PROTHROMBIN TIME (PATIENT) 11.8 SEC (9.7-13.0)
[2021-12-19 17:02] LABS: ACTIVATED PTT 32.9 SECONDS (25.2-36.5)
[2021-12-19 20:03] VITALS: BP 130/72; PULSE 54
== END 2021-12-19 20:04 | disposition home or self-care (01) ==
LOC: JER 14:10
DX: R42 Dizziness and giddiness (principal)
CPT/HCPCS: 36415; 70450-TC; 71046-TC-FY; 80053; 83880; 84439; 84443; 84484; 85025; 85610; 85730; 93005; 93010; 99285-25